=== PATIENT | female | born 1990 | race African-American/Black ===

== ENCOUNTER 2022-07-07 13:54 | Emergency (ER) | payer MEDICAID ==
[~2022-07-07] VITALS: Ht 165.1 cm; Wt 61.2 kg
[2022-07-07 14:06] VITALS: BP 133/86
--- NOTE | 2022-07-07 14:20 | NUR ---
C/O 4/10 PELVIC PAIN, LOWER BACK PAIN, URINARY FREQUENCY X 1 WEEK.
[2022-07-07 15:05] LABS: APPEARANCE,URINE CLEAR (CLEAR); BILIRUBIN,URINE NEGATIVE (NEGATIVE); BLOOD, URINE NEGATIVE (NEGATIVE); COLOR,URINE YELLOW (YELLOW); LEUKOCYTE ESTERASE ,URINE NEGATIVE (NEGATIVE); NITRITE, URINE NEGATIVE (NEGATIVE); PH,URINE 6.5 (5.0-9.0); UGLUCOSE NEGATIVE (NEGATIVE)
[2022-07-07] MEDS ORDERED: IBUP-2213 PO (16:46)
[2022-07-07 17:20] VITALS: BP 133/86
--- NOTE | 2022-07-07 17:20 | NUR ---
Patient discharged with v/s stable. Written and verbal after care instructions FOR PELVIC PAIN AND OVATIAN CYST given and explained. Patient alert, oriented and verbalized understanding of instructions. Ambulatory with steady gait. All questions addressed prior to discharge. ID band removed. Patient advised to follow up with PMD. Rx of IBUPROFEN given. Opportunity to ask questions provided and answered.
--- NOTE | 2022-07-07 17:21 | NUR ---
The patient's care was reviewed and supervised by Shalonda Lovett RN.
== END 2022-07-07 17:20 | disposition home or self-care (01) ==
LOC: MED 13:54
DX: N83.201 Unspecified ovarian cyst, right side (principal)
CPT/HCPCS: 76856; 81003; 81025; 99284

== ENCOUNTER 2022-08-27 10:41 | Emergency (ER) | payer MEDICAID ==
[~2022-08-27] VITALS: Ht 165.1 cm; Wt 60.8 kg
[~2022-08-27 10:41] MED LIST: IBUP-2213 PO
[2022-08-27 10:47] VITALS: BP 143/99
--- NOTE | 2022-08-27 10:50 | NUR ---
AMBULATED TO BED 7
--- NOTE | 2022-08-27 11:07 | NUR ---
32 y/o female bib self with c/o pelvic and back pain x 3 days. Per patient, she has white vaginal discharge. Patient also states she has sharp burning pain when urinating. Patient has had STD's in the past and describes this feeling the same as previous time she was diagnosed with previous STD. Medical History: Denies NKDA
[2022-08-27 11:12] LABS: APPEARANCE,URINE CLEAR (CLEAR); BILIRUBIN,URINE NEGATIVE (NEGATIVE); BLOOD, URINE NEGATIVE (NEGATIVE); COLOR,URINE YELLOW (YELLOW); LEUKOCYTE ESTERASE ,URINE NEGATIVE (NEGATIVE); NITRITE, URINE NEGATIVE (NEGATIVE); UGLUCOSE NEGATIVE (NEGATIVE)
--- NOTE | 2022-08-27 11:20 | NUR ---
Dr. Ruth evaluating patient at bedside.
[2022-08-27] MEDS ORDERED: DOXYCYCLINE 100 MG CAP PO STA (11:24)
[2022-08-27] MEDS ORDERED: metroNIDAZOLE 500 MG TAB PO ONE (11:25)
[2022-08-27] MEDS ORDERED: cefTRIAXone 500 MG VIAL IM ONE (11:25)
[2022-08-27] MEDS ORDERED: LIDOCAINE MPF 1% 5 ML ONE (11:36)
[2022-08-27] MEDS ORDERED: cefTRIAXone 500 MG in LIDOCAINE MPF 1% 1 ML IM ONE (11:40)
--- NOTE | 2022-08-27 12:16 | NUR ---
Chaperoned procedure with Dr. Ruth
[2022-08-27] MEDS ORDERED: DOXY-690 PO (12:17)
[2022-08-27] MEDS ORDERED: METR-520 PO (12:17)
--- NOTE | 2022-08-27 12:20 | NUR ---
Walked specimens to lab.
[2022-08-27 12:32] VITALS: BP 137/86
--- NOTE | 2022-08-27 12:32 | NUR ---
Patient discharged with v/s stable. Written and verbal after care instructions given. Patient alert, oriented and verbalized understanding of instructions. Ambulatory with steady gait. All questions addressed prior to discharge. ID band removed. Patient advised to follow up with PMD. Rx of VIBRAMYCIN AND FLAGYL given. Opportunity to ask questions provided and answered. WORK NOTE HANDED TO PATIENT.
== END 2022-08-27 12:32 | disposition home or self-care (01) ==
LOC: MED 10:41
DX: R30.0 Dysuria (principal); Z11.3 Encounter for screening for infections with a predominantly sexual mode of transmission; R03.0 Elevated blood-pressure reading, without diagnosis of hypertension; Z79.1 Long term (current) use of non-steroidal anti-inflammatories (NSAID); Z79.2 Long term (current) use of antibiotics
CPT/HCPCS: 81003; 81025; 87070; 87086; 87110; 87205; 87210; 87299; 96372; 99284; J0696; J2001